=== PATIENT | male | born 1965 | race Caucasian/White ===

== ENCOUNTER → 2021-02-07 00:49 | Outpatient (CLI) | payer OTHER, SELFPAY ==
[2021-02-07 21:01] LABS: SARS-CoV-2 RNA PCR Negative
== END ==
PROVIDERS: PCP Family Medicine; Visit Provider Internal Medicine Gastroenterology
DX: Z01.812 Encounter for preprocedural laboratory examination (principal); Z20.828 Contact with and (suspected) exposure to other viral communicable diseases
CPT/HCPCS: C9803; U0003; U0005

== ENCOUNTER 2021-02-11 00:48 | Day surgery (SDC) | payer OTHER, SELFPAY ==
[2021-02-04 15:14] VITALS: BMI 25.4
[2021-02-11 10:19] VITALS: BP 137/86; PULSE 62; RESP 18; TEMP 36.7; O2SAT 100; BMI 24.7
--- NOTE | 2021-02-11 10:27 | WPDANESEPPF ---
Anes - Initial Pre Proc Eval Procedure: Operation Date: 02/11/21 10:30 Proposed Procedures p Colonoscopy - Derrick Villela MD Date/Time: 02/11/21 10:27 Surgeon: Derrick Villela MD Pre Op Diagnosis: melena, abdominal pain Patient Data Age: 55 Gender: M Height: 1.83 m Weight: 82.9 kg Last Vital Signs Temp 36.7 C 02/11/21 10:19 Pulse 62 02/11/21 10:19 Resp 18 02/11/21 10:19 BP 137/86 02/11/21 10:19 Pulse Ox 100 02/11/21 10:19 Allergies Allergy/AdvReac Type Severity Reaction Status Date / Time No Known Allergies Allergy Unverified 02/11/21 10:18 Home Medications Medication Instructions Recorded Confirmed Type cetirizine [Zyrtec] 10 mg PO DAILY 02/04/21 02/11/21 History diphenhydramine HCl [Benadryl 25 mg PO DAILY PRN 02/04/21 02/11/21 History Allergy] Patient hx anesthesia problems: none Family hx anesthesia problems: none PMF Family History Family History Mother Carcinoma of colon Father Family history of malignant neoplasm of esophagus Social History Social History Smoking status: Current some day smoker Tobacco type: cigars and smokeless tobacco Smokeless tobacco user: chewing tobacco Alcohol intake: current Drinks per week: 1 Living arrangements: with family Spiritual care concerns: No Anes - Eval Final PreProcedure Day of Procedure 02/11/21 10:27 Patient weight: normal Heart: regular rate and rhythm Lungs: clear to auscultation Airway: Mallampati scale class II Neurological: alert and oriented Last oral intake: >/= 8 hours ASA classification: II Emergent: no Anesthetic plan: proceed Anesthesia type and monitoring: general GIVS and standard monitoring Informed Consent: The patient's anesthetic plan and its attendant risks and benefits were discussed with the patient/family/POA. Questions were solicited and answers provided to the satisfaction of the patient/family/POA.
[2021-02-11] MEDS: LACTATED RINGERS 1,000 ML 150 ML IV CONT (10:39)
--- NOTE | 2021-02-11 10:57 | WPDGICN ---
Assessment and Plan Assessment and plan (1) Bloody stool: Code(s): K92.1 - Melena Status: Acute Assessment and Plan: Patient has bloody stool for the last month. Plan is for colonoscopy to evaluate more thoroughly. He does have a prior history of nonspecific erosions of the colon. Previously felt to be self limited this will be evaluated at the time of endoscopy. (2) FHx: colon cancer: Code(s): Z80.0 - Family history of malignant neoplasm of digestive organs Status: Acute Assessment and Plan: Patient has a family history of colon cancer in his father. Plan is for surveillance colonoscopy at least at 5 year intervals in the future. GI Consult Note Consult date/time: 02/11/21 10:57 HPI: Tonny Garcia is a 55 year old male Presents with complaints of bloody stools. Patient has noticed bright red blood per rectum id mixed with stools over the last 5-6 weeks. He is noticed only mild abdominal pain described as cramping associated with BM. He denies any weight loss. Family history is noncontributory. Patient had a previous colonoscopy by Dr. Ojeda in 2017. And also 6 years prior to that. He apparently had mild nonspecific erosions in the colon at that time. These were felt to be nonspecific in self limited. No specific medication was required. Family history is significant his mother had cancer of the colon. His father had cancer of the esophagus. Review of Systems Review of Systems: All systems reviewed & are unremarkable except as noted in HPI and below PMFSH Family History Family History Mother Carcinoma of colon Father Family history of malignant neoplasm of esophagus Social History Social History Smoking status: Current some day smoker Tobacco type: cigars and smokeless tobacco Smokeless tobacco user: chewing tobacco Alcohol intake: current Drinks per week: 1 Living arrangements: with family Spiritual care concerns: No Meds Home Medications and Allergies Home Medications Medication Instructions Recorded Confirmed Type cetirizine [Zyrtec] 10 mg PO DAILY 02/04/21 02/11/21 History diphenhydramine HCl [Benadryl 25 mg PO DAILY PRN 02/04/21 02/11/21 History Allergy] Allergies Allergy/AdvReac Type Severity Reaction Status Date / Time No Known Allergies Allergy Unverified 02/11/21 10:18 Vital Signs Vital Signs - 24 hr 02/11/21 10:19 Temperature 98.1 F Pulse Rate 62 Respiratory Rate 18 Blood Pressure 137/86 Pulse Oximetry 100 Exam Narrative: Physical exam reveals patient to be alert. Vital signs stable. HEENT exam unremarkable. Patient is anicteric. Lungs are clear to auscultation and percussion. Heart is without murmur or extra sounds. Abdominal exam bowel sounds are present soft nontender with no organomegaly. Digital external rectal exam is normal.
[2021-02-11 11:27] VITALS: BP 92/59; PULSE 74; RESP 18; O2SAT 96
[2021-02-11 11:37] VITALS: BP 107/88; PULSE 58; RESP 18; O2SAT 98
[2021-02-11 11:47] VITALS: BP 112/90; PULSE 60; RESP 20; O2SAT 99
== END 2021-02-11 12:13 | disposition home or self-care (01) ==
PROVIDERS: PCP Family Medicine; Visit Provider Internal Medicine Gastroenterology
PROC: 0DJD8ZZ Inspection of Lower Intestinal Tract, Via Natural or Artificial Opening Endoscopic (ICD-10-PCS; CPT 45378; principal; 2021-02-11 10:30)
DX: K51.20 Ulcerative (chronic) proctitis without complications (principal); K57.30 Diverticulosis of large intestine without perforation or abscess without bleeding; F17.290 Nicotine dependence, other tobacco product, uncomplicated; F17.220 Nicotine dependence, chewing tobacco, uncomplicated; Z80.0 Family history of malignant neoplasm of digestive organs
CPT/HCPCS: 45380; 88305; J2704; J7120

== ENCOUNTER 2021-11-17 10:40 | Outpatient (CLI) | payer OTHER, SELFPAY | END 2021-11-17 10:41 | disposition home or self-care (01) | LOC: ANHLAB 10:41 | PROVIDERS: PCP Family Medicine; Visit Provider Surgery | DX: K40.90 Unilateral inguinal hernia, without obstruction or gangrene, not specified as recurrent (principal); Z01.818 Encounter for other preprocedural examination | CPT/HCPCS: 36415; 86850; 86900; 86901 ==

== ENCOUNTER 2021-11-19 01:57 | Day surgery (SDC) | payer OTHER, SELFPAY ==
[2021-11-16 17:16] VITALS: BMI 25.1
--- NOTE | 2021-11-16 17:39 | PC.NURSE ---
Report to the Outpatient Waiting Room, entrance under the green pavilion located off [facility], at time 1200_ on date 11/19/21. OR Time: 1400__. - You and your visitor will be asked a series of questions to screen for COVID 19 for your protection. - Only one visitor is allowed at this time. - The patient visitor is requested to leave or wait in car when not with patient. - A mask is required within the hospital. Patients may have clear liquids (water, carbonated beverages, clear teas, apple juice) until 3 hours prior to surgery with a maximum of 20 ounces. - No food from midnight until time of surgery - Infants may have breast milk until 4 hours before surgery, formula 6 hours prior to surgery. - Children will be allowed to drink immediately following surgery. If applicable, please bring a bottle or sippy cup to assist with drinking. Juice, water, soda, and popsicles are readily available. For infants on formula, please bring formula the day of surgery. Pacifiers are allowed. Take the following medications with a SIP of water the morning of surgery: n/a Medications to discontinue per physician multivitamin Date to take last dose_11/16/21 Please no make-up, nail setswana, hairspray, perfume, deodorant, or body powder the day of surgery. No jewelry (including any body piercings) or valuables the day of surgery, leave them at home. Please take a shower or bath the night before, or the morning of, surgery with an antibacterial soap(Hibiclens). Wear comfortable, loose fitting clothing. Children are encouraged to wear pajamas. - Jewelry must be removed prior to entering the operating room. Rings and piercings that are not removed may be cut off. - The hospital will not accept responsibility for valuables. - Please leave all valuables, including medications, at home the day of surgery. If you are going home after surgery, a licensed construction driver must drive you home. - NO public transportation without another adult. - We recommend that an adult stay with you for 24 hours following discharge. - We also recommend that you do not drive, make important decision, drink alcoholic beverages, or take any drugs that were not prescribed by your health care provider for at least 24 hours after your discharge time. For Pediatric surgeries, we recommend two adults accompany the child home (only one inside the building at this time). Follow any additional instructions given to you from your surgeon. If you or anyone in your household have experienced Covid symptoms in the past week, please notify your surgeon or the nurse liaison at the phone number below for possible testing. Telephone instructions given to Tonny Garcia and asked if any additional questions and then verbalized understanding. Patient advised to call surgeon office or pre surgery nurse liaison [phone] if any additional questions.
--- NOTE | 2021-11-18 15:21 | P.PNAN_ITS ---
Anes - Initial Pre Proc Eval Procedure: Operation Date: 11/19/21 14:00 Proposed Procedures p Robotic Assisted Left Inguinal Hernia Repair with Mesh - Marta Howell MD Date/Time: 11/18/21 15:21 Surgeon: Marta Howell MD Pre Op Diagnosis: Lt Ing Hernia Patient Data Age: 56 Gender: M Height: 1.83 m Weight: 84 kg Allergies Allergy/AdvReac Type Severity Reaction Status Date / Time No Known Allergies Allergy Verified 11/19/21 12:33 Home Medications Medication Instructions Recorded Confirmed Type No Home Medications 11/19/21 11/19/21 History Patient hx anesthesia problems: other (difficulty waking up) Family hx anesthesia problems: none Results Review: All pre-operative results and documents have been reviewed as part of the pre- operative evaluation. [facility] Past Medical History Medical History (Updated 11/04/21 @ 10:18 by Krystle Quezada) Hematuria Surgical History Surgical History (Updated 11/04/21 @ 10:13 by Marli Jurado MA) H/O nephrolithotomy with removal of calculi H/O: vasectomy Family History Family History (Updated 11/04/21 @ 10:10 by Marli Jurado MA) Mother Carcinoma of colon Father Family history of malignant neoplasm of esophagus Other Cancer Diabetes mellitus Hypertension Social History Social History (Updated 11/04/21 @ 10:11 by Marli Jurado MA) Years smoked: 4 Smoking status: Never smoker Tobacco type: cigars and smokeless tobacco Smokeless tobacco user: chewing tobacco Alcohol intake: current Drinks per week: 1 Substance use: never Substance use type: does not use Last use: 06/06/1984 Living arrangements: with family Additional occupation/education comments: self employed Spiritual care concerns: No Anes - Eval Final PreProcedure Day of Procedure 11/18/21 15:21 Patient weight: normal Heart: regular rate and rhythm Lungs: clear to auscultation Airway: Mallampati scale class II Neurological: alert and oriented Last oral intake: >/= 8 hours ASA classification: I Emergent: no Anesthetic plan: proceed Anesthesia type and monitoring: general ETT and standard monitoring Results Review: All pre-operative results and documents have been reviewed as part of the pre- operative evaluation. Informed Consent: The patient's anesthetic plan and its attendant risks and benefits were discussed with the patient/family/POA. Questions were solicited and answers provided to the satisfaction of the patient/family/POA.
[2021-11-19] VITALS (12 sets, daily range): BP systolic 109–138; BP diastolic 62–98; PULSE 50–64; RESP 12–18; TEMP 36.4–36.6; O2SAT 93–100
--- NOTE | 2021-11-19 12:16 | WPDHPUPDATE1 ---
History and Physical Update Update Date/Time: 11/19/21 12:16 History and Physical has been reviewed, including an updated exam of the patient. There are NO changes in the patient's condition. Risks, benefits, and alternatives have been discussed and questions answered. Patient agrees to proceed with procedure.
[2021-11-19] MEDS: ACETAMINOPHEN 500 MG TABLET 1000 MG PO (12:29)
[2021-11-19] MEDS: KETOROLAC 15 MG/ML VIAL (*BKC) IV PUSH (12:29)
[2021-11-19] MEDS: LACTATED RINGERS 1,000 ML 30 ML IV CONT ×2 (12:29→17:14)
--- NOTE | 2021-11-19 16:10 | P.OP_ITS ---
Procedure Note - Detailed Date of Procedure 11/19/21 Pre-op Diagnosis left inguinal hernia Post-op Diagnosis Same Procedure Performed robotic assisted left inguinal hernia repair with mesh Surgeon Marta Howell MD Anesthesia General Indications 56 y/o M c LIH and worsening groin pain over last few months Findings indirect left inguinal hernia Description of Procedure Patient was brought into the operating room and placed in the supine position. After adequate induction of general anesthesia, the patient was prepped and draped in normal sterile fashion. A time-out was then done to verify the patient's identity, as well as the procedure being performed. I began by making a 8 mm incision in the supraumbilical region, a Veress needle was then placed into the peritoneal cavity. CO2 gas was then insufflated and after adequate pneumoperitoneum was achieved, the Veress needle was removed. I then placed an 8 mm trocar through this incision. I then placed the endoscope through this trocar site and under direct visualization placed 2 further 8 mm ports in the right and left mid abdomen. The [employer] robot was then docked to the 3 trocar sites. I then scrubbed out and went to the robotic console. Upon examining the pelvis, it was noted that the patient had a moderate left inguinal hernia. The right side was examined and no hernia defect was noted. I began by making a preperitoneal flap approximately 6 cm superior to the defect. This flap was carried medially past the umbilical ligaments and laterally to the transversalis. It then began dissection of my medial compartment taking this down to the pubic tubercle. I then began the lateral dissection taking this down to the transversalis fascia. Once these compartments were achieved, I began dissection around the cord structures. A moderate sized indirect hernia was noted at this point. Using careful dissection, was able to reduce indirect hernia sac off the cord structures. Once this was adequately done, I went ahead and placed a large piece of 3D Max mesh into the abdominal cavity. The mesh was carefully positioned, centering the center of the mesh over the indirect defect. Once this was done, was very satisfied with our repair. Using 3-0 Vicryl sutures, I tacked the mesh medially to Jer's ligament. Two lateral sutures were placed from the mesh to the transversalis fascia. I then closed the peritoneal flap with a running 2.0 V Lock suture. The abdomen was then desufflated, and all ports were removed. All incisions were then closed with the 4.0 monocryl suture. Dermabond was placed on each wound. The patient tolerated the procedure well, was extubated in the operating room postoperatively, and will now be transferred to the recovery room in stable condition. Implants large 3DMax mesh Estimated Blood Loss 5 Drains No Packing No Pathology None sent Complications No immediate complications Condition Stable Disposition PACU [facility] Billing Surgery - Charge Forward: Surgery Billing
[2021-11-19] MEDS: fentaNYL CITRATE INJ (*CRX) 100 MCG/2 ML VIAL 25 MCG IV PUSH ×7 (16:31→17:37)
[2021-11-19] MEDS: oxyCODONE HCL (*CRX) 5 MG TAB IR PO (17:54)
== END 2021-11-19 19:02 | disposition home or self-care (01) ==
PROVIDERS: PCP Family Medicine; Visit Provider Surgery
PROC: 8E0Y4CZ Robotic Assisted Procedure of Lower Extremity, Percutaneous Endoscopic Approach (ICD-10-PCS; CPT 49650; principal; 2021-11-19 14:00)
DX: K40.90 Unilateral inguinal hernia, without obstruction or gangrene, not specified as recurrent (principal); F17.290 Nicotine dependence, other tobacco product, uncomplicated; F17.220 Nicotine dependence, chewing tobacco, uncomplicated
CPT/HCPCS: 49650; S2900; A9270; C1781; J0690; J1100; J1170; J1885; J2250; J2405; J2704; J3010; J7120

== ENCOUNTER 2022-10-28 10:15 | Outpatient (CLI) | payer OTHER, SELFPAY ==
--- NOTE | ~2022-10-28 | CT_ITS ---
EXAMINATION: CT pelvis w con DATE: 10/28/2022 10:37 INDICATION: Penile pain. TECHNIQUE: Computed tomography (CT) of the pelvis was performed with 100 mL Omnipaque 350 intravenous contrast. Automated exposure control and iterative reconstruction technique were employed. The dose- length product was 294.65 mGy-cm. COMPARISON: CT abdomen and pelvis 03/28/2019 FINDINGS: There are no dilated loops of bowel. There is diverticulosis of the colon without evidence of diverticulitis. The appendix is normal. The prostate is moderately enlarged. There are brachythera py seeds in the prostate. There is diffuse bladder wall thickening There are no pathologically enlarg ed lymph nodes. There is no free intraperitoneal fluid. There are chronic benign bone islands in the pelvis. IMPRESSION: 1. Moderately enlarged prostate with brachytherapy seeds. 2. Diffuse bladder wall thickening, likely secondary to chronic outlet obstruction. Reviewed, dictated and finalized at location E. IMPRESSION: 1. Moderately enlarged prostate with brachytherapy seeds. 2. Diffuse bladder wall thickening, likely secondary to chronic outlet obstruct ion.
== END 2022-10-28 10:16 | disposition home or self-care (01) ==
PROVIDERS: PCP Family Medicine
DX: N48.89 Other specified disorders of penis (principal); N40.0 Benign prostatic hyperplasia without lower urinary tract symptoms; N32.9 Bladder disorder, unspecified
CPT/HCPCS: 72193; Q9967

== ENCOUNTER 2023-10-10 16:43 | Outpatient (CLI) | payer BC, OTHER, SELFPAY ==
--- NOTE | ~2023-10-10 | CT_ITS ---
EXAMINATION: CT brain & sinus wo con DATE: 10/10/2023 17:07 INDICATION: Headache, epistaxes. TECHNIQUE: Computed tomography (CT) of the head and sinuses was performed without intravenous contras t. The mA was adjusted according to patient size. Iterative reconstruction technique was employed. Th e dose-length product was 832.33 mGy-cm. COMPARISON: None. FINDINGS: Brain: No acute intracranial hemorrhage or extra-axial fluid collection. No hydrocephalus, mass, or herniation. No acute ischemic infarct. Unremarkable dural venous sinus attenuation. No acute osseous abnormality. Sinuses: There is normal development and pneumatization of the paranasal sinuses. Retention cyst/polyp in the inferior left maxillary sinus. Mild ethmoid mucosal thickening. The frontal, sphenoid and right maxil jayjay sinuses are clear. The bilateral ostiomeatal complexes are patent. Mild leftward bowing of the o sseous nasal septum with osseous spurs projecting leftward off the anterior and posterior nasal septu m. Cerumen impaction on the right. Visualized soft tissues are otherwise unremarkable. IMPRESSION: No acute intracranial process. Mild ethmoid mucoperiosteal disease. Small left left maxillary retention cyst/polyp. Reviewed, dictated and finalized at location K. IMPRESSION: No acute intracranial process. Mild ethmoid mucoperiosteal disease. Small left left maxillary retention cyst/p olyp.
== END 2023-10-10 16:44 | disposition home or self-care (01) ==
LOC: ANHIMG 16:43
PROVIDERS: PCP Family Medicine; Visit Provider Physician Assistant
DX: C61 Malignant neoplasm of prostate (principal); G44.52 New daily persistent headache (NDPH); R04.0 Epistaxis; R42 Dizziness and giddiness
CPT/HCPCS: 70450; 70486